=== PATIENT | female | born 1980 | race Caucasian/White ===

== ENCOUNTER 2019-11-28 18:55 | Emergency (ER) | payer BC ==
[~2019-11-28] VITALS: Ht 160 cm; Wt 134.9 kg
[2019-11-28 19:23] VITALS: BP 162/96
--- NOTE | 2019-11-28 20:15 | NUR ---
PT TO TRIAGE, PA TO EVAL
--- NOTE | 2019-11-28 21:14 | NUR ---
THIS IS A 39Y F THAT COMES IN TONIGHT AFTER NOTICING A LUMP ALONG HER INCISION. PT HAD MASS REMOVED FROM L LUNG 11/11, DENIES FEVER CHILLS, N/V/D. PT CONNECTED TO MONITORING, NADN. CALL LIGHT IN REACH. MD AT BEDSIDE, LAB AT BEDSIDE
[2019-11-28 21:32] LABS: BASOPHILS # (AUTO) 0.03 x10^3/uL (0-0.1); BASOPHILS % (AUTO) 0 % (0-1); EOSINOPHILS # (AUTO) 0.93 x10^3/uL (0-0.4); EOSINOPHILS % (AUTO) 8 % (1-7); LYMPHOCYTES # (AUTO) 2.57 x10^3/uL (1-3.4); LYMPHOCYTES % (AUTO) 22 % (22-44); MD NO; MEAN CORPUSCULAR HEMOGLOBIN 26.4 pg (27.0-34.8); MEAN CORPUSCULAR HGB CONC 33.4 g/dL (32.4-35.8); MONOCYTES # (AUTO) 0.63 x10^3/uL (0.2-0.8); MONOCYTES % (AUTO) 5 % (2-9); NEUTROPHILS % (AUTO) 64 % (42-75); PLATELET COUNT 486 x10^3/uL (130-400); RED BLOOD COUNT 4.56 x10^6/uL (3.82-5.3); RED CELL DISTRIBUTION WIDTH 13.5 % (9.6-15.2)
[2019-11-28 21:43] LABS: ALANINE AMINOTRANSFERASE 24 U/L (12-78); ALBUMIN 3.6 g/dL (3.4-5.0); ANION GAP 6 mmol/L (5-15); CALCIUM 8.9 mg/dL (8.5-10.1); CHLORIDE 105 mmol/L (98-107); CREATININE 0.68 mg/dL (0.55-1.02)
[2019-11-28 21:46] LABS: ALKALINE PHOSPHATASE 113 U/L (45-117); BILIRUBIN,TOTAL 0.2 mg/dL (0.2-1.0); TOTAL PROTEIN 7.9 g/dL (6.4-8.2)
[2019-11-28] MEDS ORDERED: OMNIPAQUE 350 MG/ML, 75ML BOTTLE ONE (22:25)
--- NOTE | 2019-11-28 22:56 | NUR ---
Patient/Caregiver given discharge instructions and they have confirmed that they understand the instructions. Patient ambulatory with steady gait.
== END 2019-11-28 22:57 | disposition home or self-care (01) ==
LOC: ED 22:30
DX: R07.89 Other chest pain (principal); T81.30XA Disruption of wound, unspecified, initial encounter
CPT/HCPCS: 36415; 71260; 80053; 83605; 84145; 85025; 87040; 99285; Q9967